=== PATIENT | male | born 1980 | race Caucasian/White ===

== ENCOUNTER 2017-09-28 12:50 | Emergency (ER) | payer BC ==
[2017-09-28] MEDS ORDERED: predniSONE 10 MG TABLET (13:22)
[2017-09-28] MEDS: predniSONE 10 MG TABLET PO (13:24)
[2017-09-28] MEDS: HYDROcodone/APAP 5/325MG 1 TAB TABLET PO (13:25)
[2017-09-28] MEDS: diazePAM 5 MG TABLET PO (13:25)
[2017-09-28] MEDS: NAPROXEN 500 MG TABLET PO (13:25)
== END 2017-09-28 13:29 | disposition home or self-care (01) ==
LOC: ER 12:50
DX: S39.012A Strain of muscle, fascia and tendon of lower back, initial encounter (principal); M54.42 Lumbago with sciatica, left side; I10 Essential (primary) hypertension; X50.0XXA Overexertion from strenuous movement or load, initial encounter; Y93.89 Activity, other specified; Y92.89 Other specified places as the place of occurrence of the external cause; Y99.8 Other external cause status
CPT/HCPCS: 99284; J7512

== ENCOUNTER 2020-02-16 09:01 | Emergency (ER) | payer BC ==
[~2020-02-16] VITALS: Ht 185.4 cm; Wt 120.4 kg
[~2020-02-16 09:01] MED LIST: DIAZ5TAB PO; DICL100G54 TP; METH4TAB2 PO; NAPR500T8 PO
[2020-02-16] MEDS ORDERED: MORPHINE SULFATE 4 MG/ML VIAL. IV ONE (09:15)
[2020-02-16] MEDS ORDERED: KETOROLAC 15 MG/ML VIAL. IVP ONE (09:15)
--- NOTE | 2020-02-16 09:18 | PHYS DOC ---
Past Medical History Past Medical History: No Pertinent History Past Surgical History: Other Additional Past Surgical Histo: keloid removal from ear Smoking Status: Never Smoker Alcohol Use: None Drug Use: None General Adult EDM: Chief Complaint: FLANK PAIN HPI: HPI: History obtained from patient. Patient is a 40-year-old male with no reported past medical history who presents with chief complaint of left flank pain. Patient states the pain began somewhat suddenly 3 days prior to arrival. He states he was at rest when the pain began. States it starts in his left lower quadrant radiates to his left lower back and left upper quadrants. States the pain comes and goes. States it is difficult to find a position of comfort particularly he is sitting upright. He states he did note some darker colored urine 3 days ago but this is since resolved. Denies any obvious blood in the urine. Denies any burning with urination. Denies history of kidney stone. Denies changes to stool caliber or consistency. Denies any blood in his stool. Denies testicle pain. [place] fevers or vomiting. States he has been eating and drinking well. Denies any abdominal surgical history. Denies syncope. Denies alcohol or drug abuse. States the pain is an intermittent sharp and stabbing pain. Did try ibuprofen 6 hours prior to arrival with some relief. Review of Systems: Review of Systems: Constitutional: Denies fever or chills. [] Eyes: Denies change in visual acuity. [] HENT: Denies nasal congestion or sore throat. [] Respiratory: Denies cough or shortness of breath. [] Cardiovascular: Denies chest pain or edema. [] GI: Denies abdominal pain, nausea, vomiting, bloody stools or diarrhea. [] : Denies dysuria. [] Musculoskeletal: Positive for flank pain Integument: Denies rash. [] Neurologic: Denies headache, focal weakness or sensory changes. [] Endocrine: Denies polyuria or polydipsia. [] Lymphatic: Denies swollen glands. [] Psychiatric: Denies depression or anxiety. [] Heart Score: Risk Factors: Risk Factors: DM, Current or recent (<one month) smoker, HTN, HLP, family history of CAD, obesity. Risk Scores: Score 0 - 3: 2.5% MACE over next 6 weeks - Discharge Home Score 4 - 6: 20.3% MACE over next 6 weeks - Admit for Clinical Observation Score 7 - 10: 72.7% MACE over next 6 weeks - Early Invasive Strategies Allergies: Allergies: Allergies Coded Allergies Type Severity Reaction Last Updated Verified No Known Drug Allergies 09/28/17 No Physical Exam: PE: Constitutional: Well developed, well nourished, no acute distress, non-toxic appearance. [] HENT: Normocephalic, atraumatic, bilateral external ears normal, oropharynx moist, no oral exudates, nose normal. [] Eyes: PERRLA, EOMI, conjunctiva normal, no discharge. [] Neck: Normal range of motion, no tenderness, supple, no stridor. [] Cardiovascular:Heart rate regular rhythm, no murmur [] Lungs & Thorax: Bilateral breath sounds clear to auscultation [] Abdomen: soft, no tenderness, no masses, no pulsatile masses. [] : Uncircumcised. No testicular tenderness to palpation. No overlying skin changes. Skin: Warm, dry, no erythema, no rash. [] Back: No tenderness, no CVA tenderness. [] Extremities: No tenderness, no cyanosis, no clubbing, ROM intact, no edema. [] Neurologic: Alert and oriented X 3, normal motor function, normal sensory function, no focal deficits noted. [] Psychologic: Affect normal, judgement normal, mood normal. [] Current Patient Data: Labs: Laboratory Tests Test 02/16/20 09:04 02/16/20 09:40 Urine Collection Type Unknown Urine Color Yellow Urine Clarity Clear Urine pH 6.0 Urine Specific [place] 1.010 Urine Protein Negative mg/dL Urine Glucose (UA) Negative mg/dL Urine Ketones (Stick) Negative mg/dL Urine Blood Small Urine Nitrite Negative Urine Bilirubin Negative Urine Urobilinogen Dipstick 0.2 mg/dL Urine Leukocyte Esterase Negative Urine RBC Rare /HPF Urine WBC Rare /HPF Urine Squamous Epithelial Cells Occ /LPF Urine Bacteria 0 /HPF Sodium Level 135 mmol/L Potassium Level 4.5 mmol/L Chloride Level 101 mmol/L Carbon Dioxide Level 26 mmol/L Anion Gap 8 Blood Urea Nitrogen 20 mg/dL Creatinine 1.3 mg/dL Estimated GFR (Cockcroft-Gault) 61.1 BUN/Creatinine Ratio 15 Glucose Level 104 mg/dL Calcium Level 9.1 mg/dL Total Bilirubin 0.5 mg/dL Aspartate Amino Transf (AST/SGOT) 30 U/L Alanine Aminotransferase (ALT/SGPT) 70 U/L Alkaline Phosphatase 51 U/L Total Protein 7.6 g/dL Albumin 4.0 g/dL Albumin/Globulin Ratio 1.1 Lipase 82 U/L Current Medications Medications (Trade) Dose Ordered Sig/July Route PRN Reason Start Time Stop Time Status Last Admin Dose Admin Morphine Sulfate (Morphine Sulfate) 4 mg 1X ONCE IV 02/16/20 09:15 02/16/20 09:18 DC 02/16/20 09:47 Ketorolac Tromethamine (Toradol 15mg Vial) 15 mg 1X ONCE IVP 02/16/20 09:15 02/16/20 09:18 DC 02/16/20 09:46 Vital Signs: Vital Signs Date Time Temp Pulse Resp B/P (MAP) Pulse Ox O2 Delivery O2 Flow Rate FiO2 02/16/20 09:15 98.7 83 20 175/102 (126) 97 Room Air 98.7 EKG: EKG: [] Radiology/Procedures: Radiology/Procedures: [facility] [address] [place] [address] IMAGING REPORT Signed PATIENT: LV MCCLAIN ACCOUNT: [id number] : 1980 LOCATION: ER AGE: 40 SEX: M EXAM STATUS: PRE ER ORD. PHYSICIAN: LATANYA BARNEY DO REASON: L flank pain PROCEDURE: CT ABDOMEN PELVIS WO CONTRAST EXAMINATION: CT ABDOMEN+PELVIS WO (CT ABDOMEN/PELVIS WITHOUT IV CONTRAST) CLINICAL HISTORY: Left flank pain TECHNIQUE: Non-IV contrast imaging of the abdomen and pelvis was performed using standard technique, scanning from just above the dome of the diaphragm to the symphysis pubis. Unenhanced imaging is limited for the evaluation of some intra-abdominal and pelvic pathology. CT Dose Reduction Employed: One or more of the following individualized dose reduction techniques were utilized for this examination: 1. Automated exposure control 2. Adjustment of the mA and/or kV according to patient size 3. Use of iterative reconstruction technique. COMPARISON: None FINDINGS: Partially visualized coronary atherosclerotic calcification. Partially visualized lung bases unremarkable. Diffuse hypoattenuation of the hepatic parenchyma, compatible steatosis. Gallbladder, pancreas, spleen, and adrenal glands unremarkable. 5 mm partially obstructive calculus in the distal left ureter at the ureterovesical junction with mild hydroureter but no significant left hydronephrosis. 7 mm calcification in the midpole the right kidney may represent a nonobstructive calculus. Mildly filled urinary bladder. No pelvic free fluid or mass. No dilated bowel. [id number] colonic diverticulosis without evidence of diverticulitis on limited noncontrast evaluation. Normal appendix. No abdominal aortic or iliac artery aneurysm. Multiple prominent mesenteric and retroperitoneal lymph nodes, likely reactive. Multilevel thoracolumbar degenerative changes. IMPRESSION: Partially obstructive 5 mm calculus at the left ureterovesical junction with mild hydroureter. Nonacute findings as described. Electronically signed by: Perry Muller DO (02/16/2020 10:19 AM) [facility] DI[facility]ATED and SIGNED BY: PERRY MULLER DO DATE: 02/16/20 [id number] [] Course & Med Decision Making: Course & Med Decision Making Pertinent Labs and Imaging studies reviewed. (See chart for details) [] Patient is a well-appearing 40-year-old male who presents with chief complaint of left flank pain. Vital signs unremarkable. CT imaging does reveal a 5 mm partially obstructing left kidney stone with mild hydronephrosis. Normal kidney function. Urinalysis without evidence of infection. I do feel this kidney stone likely explains the patient's discomfort. I do feel he is xavier ropriate for discharge home with close outpatient follow-up. He will be discharged home with [place], Flomax, Zofran. Patient is agreeable to this and states his symptoms have resolved after treatment in the emergency department. Return precautions were discussed and understood. He was given a neurologist to follow-up with. Stable for discharge home. Kilo Disclaimer: Dragabisai Disclaimer: This electronic medical record was generated, in whole or in part, using a voice recognition dictation system. Departure Departure Impression: Primary Impression: Ureterolithiasis Disposition: 01 DC HOME SELF CARE/HOMELESS Condition: STABLE Referrals: NO PCP (PCP) FLASH ENG MD Patient Instructions: Kidney Stones Additional Instructions: Dr. Crescencio Head MD [address] [place] [address] Call [place] [phone] Scripts Tamsulosin Hcl (FLOMAX) 0.4 Mg Cap.er.24h 1 CAP PO QHS, #7 CAP 11 Refills Prov: LATANYA BARNEY DO 02/16/20 Ondansetron Hcl (ZOFRAN) 4 Mg Tablet 1 TAB PO TID PRN PRN for NAUSEA, #9 TAB Prov: LATANYA BARNEY DO 02/16/20 Hydrocodone/Apap 5-325 (NORCO 5-325 TABLET) 1 Each Tablet 1-2 EACH PO PRN Q6HRS PRN for PAIN, #5 as needed for pain Prov: LATANYA BARNEY DO 02/16/20 LATANYA BARNEY DO Feb 16, 2020 09:18
[2020-02-16 10:11] LABS: CALCIUM 9.1 mg/dL (8.5-10.1); CREATININE 1.3 mg/dL (0.7-1.3); GFR 61.1; POTASSIUM 4.5 mmol/L (3.5-5.1)
[2020-02-16 10:17] LABS: ALBUMIN/GLOBULIN RATIO 1.1 (1.0-1.7); TOTAL BILIRUBIN 0.5 mg/dL (0.2-1.0); TOTAL PROTEIN 7.6 g/dL (6.4-8.2)
--- NOTE | 2020-02-16 10:22 | RAD ---
EXAMINATION: CT ABDOMEN+PELVIS WO (CT ABDOMEN/PELVIS WITHOUT IV CONTRAST) CLINICAL HISTORY: Left flank pain TECHNIQUE: Non-IV contrast imaging of the abdomen and pelvis was performed using standard technique, scanning from just above the dome of the diaphragm to the symphysis pubis. Unenhanced imaging is bocanegra ited for the evaluation of some intra-abdominal and pelvic pathology. CT Dose Reduction Employed: One or more of the following individualized dose reduction techniques wer e utilized for this examination: 1. Automated exposure control 2. Adjustment of the mA and/or kV ac cording to patient size 3. Use of iterative reconstruction technique. COMPARISON: None FINDINGS: Partially visualized coronary atherosclerotic calcification. Partially visualized lung bases unremark able. Diffuse hypoattenuation of the hepatic parenchyma, compatible steatosis. Gallbladder, pancreas, splee n, and adrenal glands unremarkable. 5 mm partially obstructive calculus in the distal left ureter at the ureterovesical junction with mil d hydroureter but no significant left hydronephrosis. 7 mm calcification in the midpole the right kid melania may represent a nonobstructive calculus. Mildly filled urinary bladder. No pelvic free fluid or mass. No dilated bowel. [id number] colonic diverticulosis without evidence of diverticulitis on limit ed noncontrast evaluation. Normal appendix. No abdominal aortic or iliac artery aneurysm. Multiple prominent mesenteric and retroperitoneal lymph nodes, likely reactive. Multilevel thoracolumbar degenerative changes. IMPRESSION: Partially obstructive 5 mm calculus at the left ureterovesical junction with mild hydroureter. Nonacute findings as described. Electronically signed by: Perry García DO (02/16/2020 10:19 AM) [facility]
[2020-02-16] MEDS ORDERED: TAMS0.4C97 PO (10:29)
[2020-02-16] MEDS ORDERED: ONDA4TAB7 PO (10:29)
[2020-02-16] MEDS ORDERED: HYDR-3164 PO (10:29)
[2020-02-16 10:43] LABS: BILIRUBIN,URINE NEGATIVE (NEG); CLARITY,URINE CLEAR; COLOR,URINE YELLOW; NITRITE,URINE NEGATIVE (NEG); PROTEIN,URINE NEGATIVE (NEG-TRACE); UROBILINOGEN,URINE 0.2 mg/dL (0.2 mg/dL)
[2020-02-16 11:09] VITALS: BP 132/77
[2020-02-16 11:13] LABS: BACTERIA,URINE 0 /HPF (0-FEW); RBC,URINE RARE /HPF (0-2); WBC,URINE RARE /HPF (0-4)
== END 2020-02-16 11:38 | disposition home or self-care (01) ==
LOC: ER 09:01
DX: N20.1 Calculus of ureter (principal); R10.32 Left lower quadrant pain; Z98.890 Other specified postprocedural states
CPT/HCPCS: 36415; 74176; 80053; 81001; 83690; 96374; 96375; 99284; J1885; J2270

== ENCOUNTER 2021-02-19 14:27 | Emergency (ER) | payer BC ==
[~2021-02-19] VITALS: Ht 185.4 cm; Wt 125.0 kg
[~2021-02-19 14:27] MED LIST changes: +HYDR-3164 PO; +ONDA4TAB7 PO; +TAMS0.4C97 PO
--- NOTE | 2021-02-19 15:21 | PHYS DOC ---
Past Medical History Past Medical History: No Pertinent History Past Surgical History: Other Additional Past Surgical Histo: keloid removal from ear Smoking Status: Never Smoker Alcohol Use: None Drug Use: None General Adult EDM: Chief Complaint: ABDOMINAL PAIN HPI: HPI: Patient is a 41 year old male here for 6 days of generalized abdominal pain. He denies nausea, vomiting, anorexia. No specific exacerbating relieving factors. The pain does radiate to his low back. He denies any flank pain, thoracic pain, denies chest pain or dyspnea. He denies constipation or diarrhea. He denies urinary symptoms. He reports having a previous history of kidney stones, though he admits that this is nothing like that. He denies any previous abdominal surgeries. No changes in his symptoms today. He was simply concerned because the pain was still persisting. He does report having a healthy appetite, has been eating and drinking without difficulty. He has an appointment on the of this month to establish care with a new primary care physician. Review of Systems: Review of Systems: Constitutional: Denies fever or chills. [] Eyes: Denies change in visual acuity. [] HENT: Denies nasal congestion or sore throat. [] Respiratory: Denies cough or shortness of breath. [] Cardiovascular: Denies chest pain or edema. [] GI: Reports abdominal pain, denies, nausea, vomiting, diarrhea, constipation, dark stools or bloody stools. : Denies urinary symptoms. Musculoskeletal: Reports low back pain. Denies upper or lower extremity pain. Denies joint swelling or pain. Integument: Denies rash. [] Neurologic: Denies headache, focal weakness or sensory changes. [] Psychiatric: Denies depression or anxiety. [] Heart Score: C/O Chest Pain: No Risk Factors: Risk Factors: DM, Current or recent (<one month) smoker, HTN, HLP, family history of CAD, obesity. Risk Scores: Score 0 - 3: 2.5% MACE over next 6 weeks - Discharge Home Score 4 - 6: 20.3% MACE over next 6 weeks - Admit for Clinical Observation Score 7 - 10: 72.7% MACE over next 6 weeks - Early Invasive Strategies Allergies: Allergies: Allergies Coded Allergies Type Severity Reaction Last Updated Verified No Known Drug Allergies 09/28/17 No Physical Exam: PE: Constitutional: Well developed, well nourished, no acute distress, non-toxic appearance. [] HENT: Normocephalic, atraumatic Eyes: Sclera are clear and anicteric Neck: Normal range of motion, no tenderness, supple, no stridor. Trachea is midline. Cardiovascular:Heart rate regular rhythm, +2 radial and +2 posterior tibial pulses bilaterally. Lungs & Thorax: Bilateral breath sounds clear to auscultation [] Abdomen: Abdomen is soft, non-distended, normal bowel sounds, no palpable mass or organomegaly. No objective tenderness to palpation. No palpable pulsatile mass. No flank or abdominal ecchymoses. Skin: Warm, dry, no erythema, no rash. [] Back: No tenderness, no CVA tenderness. Full range of motion. Extremities: No tenderness, no cyanosis, no clubbing, ROM intact, no edema. No calf tenderness. Neurologic: Alert and oriented X 3, normal motor function, normal sensory function, no focal deficits noted. [] Psychologic: Affect normal, judgement normal, mood normal. [] EKG: EKG: EKG is interpreted at 1601 Rhythm is sinus Rate is 79 bpm [place] is normal. No STEMI Radiology/Procedures: Radiology/Procedures: IMAGING REPORT Signed PATIENT: LV MCCLAIN ACCOUNT: [id number] : 1980 LOCATION: ER AGE: 41 SEX: M EXAM STATUS: REG ER ORD. PHYSICIAN: HEMANT QUICK DO REASON: abdominal pain;OMNI 300, 75ML PROCEDURE: CT ABD PELV W/ IV CONTRST ONLY CT abdomen pelvis with contrast dated 02/19/2021. COMPARISON: None. Clinical data indication: Abdominal pain. TECHNIQUE: Contiguous axial imaging the M pelvis performed after the administration of 75 cc Omnipaque 300. One or more of the following individualized dose reduction techniques were utilized for this examination: 1. Automated exposure control 2. Adjustment of the mA and/or kV according to patient size 3. Use of iterative reconstruction technique. FINDINGS: Limited images of the lung bases are clear. Heart size is upper limits of normal. No pleural or pericardial effusion. Coronary artery calcifications. Liver is of diffuse low density compatible with fatty infiltration. No apparent mass. Biliary tree normal in caliber. Gallbladder unremarkable. Spleen is normal in size. Pancreas, adrenal glands and kidneys are unremarkable. No hydronephrosis. Unopacified GI tract normal in caliber and contour. No focal bowel wall thickening. No inflammatory stranding in the mesentery. The appendix is normal in caliber. No ascites or lymphadenopathy. Abdominal aorta normal in caliber. Images the pelvis show nondistended urinary bladder. Prostate gland within normal limits in size. No free fluid or pelvic lymphadenopathy. Bone windows show no acute finding. Multilevel spondylosis. Moderate to severe foraminal narrowing at the L5-S1 level. IMPRESSION: 1. No acute abnormality of abdomen or pelvis. Normal appendix. 2. Mild fatty infiltration of the liver. Electronically signed by: Davie Wakefield MD (02/19/2021 4:50 PM) [facility] [place] DICTATED and SIGNED BY: DAVIE WAKEFIELD MD DATE: 02/19/21 [id number] Course & Med Decision Making: Course & Med Decision Making Pertinent Labs and Imaging studies reviewed. (See chart for details) I discussed the findings, differential diagnosis and plan of care with the patient. He declines pain medication. Abdominal exam is benign, nonsurgical. Work-up here is unremarkable for any acute life-threatening process. He is comfortable with plan for discharge home. I told him to keep his schedule appointment with his new primary care doctor on the . He may need to see outpatient GI services if symptoms persist. Strict return precautions are given. Kilo Disclaimer: Kilo Disclaimer: This electronic medical record was generated, in whole or in part, using a voice recognition dictation system. Departure Departure Impression: Primary Impression: Generalized abdominal pain Disposition: HOME / SELF CARE / HOMELESS Condition: STABLE Referrals: NO PCP (PCP) Patient Instructions: Abdominal Pain (Nonspecific) Additional Instructions: Return to the ER for more severe or localized pain, vomiting, temperature 100.4 or higher, shortness of breath, chest pain, bloody stools, vomiting blood or any other concerns. Keep your appointment on Monday the with your new primary care doctor. You may need to see outpatient GI services if symptoms persist. HEMANT QUICK DO Feb 19, 2021 15:21
[2021-02-19 15:55] LABS: BILIRUBIN,URINE NEGATIVE (NEG); CLARITY,URINE CLEAR; COLOR,URINE YELLOW; NITRITE,URINE NEGATIVE (NEG); PH,URINE 5.5 (<5.0-8.0); PROTEIN,URINE NEGATIVE (NEG-TRACE); UROBILINOGEN,URINE 0.2 mg/dL (0.2 mg/dL)
[2021-02-19 16:02] LABS: BACTERIA,URINE 0 /HPF (0-FEW); RBC,URINE 0 /HPF (0-2); WBC,URINE 0 /HPF (0-4)
[2021-02-19 16:10] LABS: BASO # 0.1 x10^3/uL (0.0-0.2); BASO % 1 % (0-3); EOS # 0.2 x10^3/uL (0.0-0.7); EOS % 2 % (0-3); HEMATOCRIT 44.7 % (39.0-53.0); HEMOGLOBIN 15.4 g/dL (13.0-17.5); LYMPH # 2.6 x10^3/uL (1.0-4.8); LYMPH % 29 % (24-48); MEAN CORPUSCULAR HEMOGLOBIN 28 pg (25-35); MEAN CORPUSCULAR HGB CONC 35 g/dL (31-37); MEAN CORPUSCULAR VOLUME 82 fL (79-100); MONO # 0.6 x10^3/uL (0.0-1.1); MONO % 6 % (0-9); NEUT # 5.5 x10^3/uL (1.8-7.7); NEUT % 61 % (31-73); PLATELET COUNT 197 x10^3/uL (140-400); RED BLOOD COUNT 5.49 x10^6/uL (4.30-5.70); RED CELL DISTRIBUTION WIDTH 14.3 % (11.5-14.5)
[2021-02-19 16:19] LABS: CALCIUM 9.5 mg/dL (8.5-10.1); CREATININE 0.9 mg/dL (0.7-1.3); POTASSIUM 3.7 mmol/L (3.5-5.1)
[2021-02-19 16:25] LABS: ALBUMIN 4.1 g/dL (3.4-5.0); ALBUMIN/GLOBULIN RATIO 1.2 (1.0-1.7); TOTAL BILIRUBIN 0.6 mg/dL (0.2-1.0); TOTAL PROTEIN 7.6 g/dL (6.4-8.2)
--- NOTE | 2021-02-19 16:26 | EKG ---
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
[2021-02-19] MEDS ORDERED: IOHEXOL 300 MG/ML 100ML VIAL. IV ONE (16:30)
[2021-02-19] MEDS ORDERED: CONTRAST GIVEN. MC PRN (16:45)
--- NOTE | 2021-02-19 16:52 | RAD ---
CT abdomen pelvis with contrast dated 02/19/2021. COMPARISON: None. Clinical data indication: Abdominal pain. TECHNIQUE: Contiguous axial imaging the M pelvis performed after the administration of 75 cc Omnipaque 300. One or more of the following individualized dose reduction techniques were utilized for this examinat ion: 1. Automated exposure control 2. Adjustment of the mA and/or kV according to patient size 3. Use of iterative reconstruction technique. FINDINGS: Limited images of the lung bases are clear. Heart size is upper limits of normal. No pleural or peric ardial effusion. Coronary artery calcifications. Liver is of diffuse low density compatible with fatty infiltration. No apparent mass. Biliary tree no rmal in caliber. Gallbladder unremarkable. Spleen is normal in size. Pancreas, adrenal glands and kidneys are unremarkable. No hydronephrosis. Unopacified GI tract normal in caliber and contour. No focal bowel wall thickening. No inflammatory s tranding in the mesentery. The appendix is normal in caliber. No ascites or lymphadenopathy. Abdomina l aorta normal in caliber. Images the pelvis show nondistended urinary bladder. Prostate gland within normal limits in size. No free fluid or pelvic lymphadenopathy. Bone windows show no acute finding. Multilevel spondylosis. Moderate to severe foraminal narrowing at the L5-S1 level. IMPRESSION: 1. No acute abnormality of abdomen or pelvis. Normal appendix. 2. Mild fatty infiltration of the liver. Electronically signed by: Davie Wakefield MD (02/19/2021 4:50 PM) [facility]
[2021-02-19 17:01] VITALS: BP 155/90
== END 2021-02-19 17:50 | disposition home or self-care (01) ==
LOC: ER 14:27
DX: R10.84 Generalized abdominal pain (principal)
CPT/HCPCS: 36415; 74177; 80053; 81001; 83690; 85025; 93005; 99285; Q9967

== ENCOUNTER 2021-04-05 11:31 | Emergency (ER) | payer BC, OTHER ==
[~2021-04-05] VITALS: Ht 185.4 cm; Wt 122.7 kg
[2021-04-05 14:04] LABS: BILIRUBIN,URINE NEGATIVE (NEG); CLARITY,URINE CLEAR; COLOR,URINE YELLOW; NITRITE,URINE NEGATIVE (NEG); PROTEIN,URINE NEGATIVE (NEG-TRACE); UROBILINOGEN,URINE 0.2 mg/dL (0.2 mg/dL)
[2021-04-05 14:34] LABS: BACTERIA,URINE 0 /HPF (0-FEW); RBC,URINE RARE /HPF (0-2); WBC,URINE RARE /HPF (0-4)
--- NOTE | 2021-04-05 15:38 | PHYS DOC ---
Past Medical History Past Medical History: No Pertinent History Additional Past Medical Histor: kidney stones Past Surgical History: No Surgical History, Other Additional Past Surgical Histo: keloid removal from ear Smoking Status: Never Smoker Alcohol Use: None Drug Use: None General Adult EDM: Chief Complaint: ABDOMINAL PAIN HPI: HPI: Patient is a 41 year old male who presents with periumbilical abdominal pain. He has had the symptoms off and on for over a month. He was seen here in February for similar symptoms. CT imaging was unremarkable at that time. He has since establish care with a primary care physician, who started him on anta juany medications and also on Flomax. He reports that the pain frequently is worse after working for long periods of time. The pain does not radiate. He denies nausea, vomiting, diarrhea, constipation. He denies urinary symptoms. He denies back or flank pain. He denies anorexia. He denies weight loss. He has a scheduled appointment to see GI on the 20 of April. He was seen by his doctor today in the office just prior to arrival, and he was sent here to the ER to have a CT scan to rule out an incarcerated hernia. He is not noted to have a previous hernia, no previous abdominal surgeries. Review of Systems: Review of Systems: Constitutional: Denies fever or chills. [] HENT: Denies nasal congestion or sore throat. [] Respiratory: Denies cough or shortness of breath. [] Cardiovascular: Denies chest pain or edema. [] GI: Periumbilical abdominal pain. Denies nausea, vomiting, diarrhea, constipation. Denies melena or hematochezia peer : Denies urinary symptoms. Musculoskeletal: Denies back pain or joint pain. [] Integument: Denies rash. [] Neurologic: Denies headache, focal weakness or sensory changes. [] Psychiatric: Denies depression or anxiety. [] Heart Score: C/O Chest Pain: No Risk Factors: Risk Factors: DM, Current or recent (<one month) smoker, HTN, HLP, family history of CAD, obesity. Risk Scores: Score 0 - 3: 2.5% MACE over next 6 weeks - Discharge Home Score 4 - 6: 20.3% MACE over next 6 weeks - Admit for Clinical Observation Score 7 - 10: 72.7% MACE over next 6 weeks - Early Invasive Strategies Allergies: Allergies: Allergies Coded Allergies Type Severity Reaction Last Updated Verified No Known Drug Allergies 09/28/17 No Physical Exam: PE: Constitutional: Well developed, well nourished, no acute distress, non-toxic appearance. [] HENT: Normocephalic, atraumatic Eyes: conjunctiva normal, no discharge. No scleral icterus. Neck: Normal range of motion, no tenderness, supple, no stridor. Trachea midline Cardiovascular:Heart rate regular rhythm, 2 radial and +2 posterior tibial pulses bilateral Lungs & Thorax: Bilateral breath sounds clear to auscultation [] Abdomen: Abdomen is obese, soft, nondistended, normal bowel sounds, no palpable pulsatile mass, no audible bruit, no palpable organomegaly or masses noted. Mild periumbilical abdominal tenderness, no guarding, no rebound tenderness, no palpable defect or hernia appreciated at all. No CVA tenderness. No periumbilical, abdominal or flank ecchymoses are noted Skin: Warm, dry, no erythema, no rash. No ecchymoses. No jaundice. Back: No tenderness, no CVA tenderness. [] Extremities: No tenderness, no cyanosis, no clubbing, ROM intact, no edema. [] Neurologic: Alert and oriented X 3, normal motor function, normal sensory function, no focal deficits noted. [] Psychologic: Affect normal, judgement normal, mood normal. [] Current Patient Data: Labs: Laboratory Tests Test 04/05/21 13:00 Urine Color Yellow Urine Clarity Clear Urine pH 6.0 (<5.0-8.0) Urine Specific [place] 1.010 (1.000-1.030) Urine Protein Negative mg/dL (NEG-TRACE) Urine Glucose (UA) Negative mg/dL (NEG) Urine Ketones (Stick) Negative mg/dL (NEG) Urine Blood Trace (NEG) Urine Nitrite Negative (NEG) Urine Bilirubin Negative (NEG) Urine Urobilinogen Dipstick 0.2 mg/dL (0.2 mg/dL) Urine Leukocyte Esterase Negative (NEG) Urine RBC Rare /HPF (0-2) Urine WBC Rare /HPF (0-4) Urine Squamous Epithelial Cells Few /LPF Urine Bacteria 0 /HPF (0-FEW) Vital Signs: Vital Signs Date Time Temp Pulse Resp B/P (MAP) Pulse Ox O2 Delivery O2 Flow Rate FiO2 04/05/21 13:43 98.1 94 18 151/97 (115) 97 Room Air 98.1 EKG: EKG: [] Radiology/Procedures: Radiology/Procedures: IMAGING REPORT Signed PATIENT: LV MCCLAIN ACCOUNT: [id number] : 1980 LOCATION: ER AGE: 41 SEX: M EXAM STATUS: REG ER ORD. PHYSICIAN: HEMANT QUICK DO REASON: periumbilical abdominal pain PROCEDURE: CT ABD PELV W/ IV CONTRST ONLY Exam: CT abdomen/pelvis with intravenous contrast Indication: Periumbilical abdominal pain Comparison: CT abdomen and pelvis 02/19/2021 Technique: Helical CT imaging performed of the abdomen and pelvis after the intravenous administration of 75 mg Omnipaque 300 contrast. Sagittal and coronal reformats were obtained. One or more of the following individualized dose reduction techniques were u tilized for this examination: 1. Automated exposure control 2. Adjustment of the mA and/or kV according to patient size 3. Use of iterative reconstruction technique. Findings: Lower chest: Lung bases are clear. Heart is normal in size. Liver: The liver measures 19.5 cm and diffusely decreased in attenuation. No focal liver lesion. Gallbladder/Biliary Tree: Normal. Pancreas: Normal. Spleen: Normal. Adrenal Glands: Normal. Kidneys/Ureters/Bladder:. Kidneys are normal in size and enhancement. No hyd ronephrosis. A linear calcification in the right kidney is unchanged. No hydronephrosis. Ureters and bladder are normal. Reproductive Organs: Prostate gland is normal. Stomach, small bowel, and colon: The stomach, small bowel, colon, and appendix are normal. Vasculature: No aortic aneurysm. No vascular calcifications. Lymph Nodes: No lymphadenopathy. Peritoneum and retroperitoneum: No free fluid or free air. Bones: No acute osseous abnormality. Unchanged mild degenerative disc disease, greatest at L5-S1 where there is right greater than left foraminal narrowing. Miscellaneous: No abdominal wall or inguinal hernia. IMPRESSION: 1. No acute abnormality in the abdomen and pelvis. 2. Unchanged nonobstructing calculus in the right kidney. 3. Unchanged hepatic steatosis. Electronically signed by: Sahra Lewis MD (04/05/2021 5:15 PM) [id number] DICTATED and SIGNED BY: SAHRA LEWIS MD DATE: 04/05/21 [id number] 0 Course & Med Decision Making: Course & Med Decision Making Pertinent Labs and Imaging studies reviewed. (See chart for details) Patient is given IV fluids and IV Toradol. He has a benign, nonsurgical abdominal exam. No objective evidence of hernia defect, no objective evidence of any acute abdominal pathology on CT. Laboratory exams are unremarkable. I have discussed all of the findings, differential diagnosis and plan of care with the patient. I strongly encouraged him to keep his appointment on April 20 with GI. He should also follow-up with his primary care physician. He may continue taking antacid medications. He will be prescribed a small number of pain medicine to use as needed for severe pain only. Strict return precautions are given. He verbalized understanding. Dragon Disclaimer: Dragon Disclaimer: This electronic medical record was generated, in whole or in part, using a voice recognition dictation system. Departure Departure Impression: Primary Impression: Periumbilical abdominal pain Disposition: HOME / SELF CARE / HOMELESS Condition: STABLE Referrals: MAYCOL PABLO MD (PCP) Patient Instructions: Abdominal Pain (Nonspecific) Additional Instructions: Your CAT scan and labs today are normal. You do not have any evidence of a hernia or other acute life-threatening or surgical problems. Please keep your scheduled appointment with GI in April. Return to the ER for acute changes in pain, uncontrolled vomiting, fever 100.4 or higher, dehydration, if you are acutely injured or sustained any trauma or for any other concerns. You may keep taking your previously prescribed medications as per your primary care doctor. Follow-up with your primary care doctor for further evaluation of this condition as well. Scripts Tramadol Hcl (ULTRAM) 50 Mg Tablet 1 TAB PO PRN Q6HRS PRN for pain MDD 4 Tablet(s), #15 TAB 0 Refills Prov: HEMANT QUICK DO 04/05/21 HEMANT QUICK DO Apr 05, 2021 15:38
[2021-04-05] MEDS: IV NORMAL SALINE 1000ML BAG 1,000 ML IV ONE (16:24)
[2021-04-05] MEDS: KETOROLAC 15 MG/ML VIAL. IVP ONE (16:24)
[2021-04-05 16:27] LABS: BASO % 1 % (0-3); EOS # 0.2 x10^3/uL (0.0-0.7); EOS % 2 % (0-3); HEMATOCRIT 46.4 % (39.0-53.0); HEMOGLOBIN 16.2 g/dL (13.0-17.5); LYMPH # 2.1 x10^3/uL (1.0-4.8); LYMPH % 21 % (24-48); MEAN CORPUSCULAR HEMOGLOBIN 28 pg (25-35); MEAN CORPUSCULAR HGB CONC 35 g/dL (31-37); MEAN CORPUSCULAR VOLUME 80 fL (79-100); MONO # 0.5 x10^3/uL (0.0-1.1); MONO % 5 % (0-9); NEUT # 6.9 x10^3/uL (1.8-7.7); NEUT % 71 % (31-73); PLATELET COUNT 237 x10^3/uL (140-400); RED BLOOD COUNT 5.78 x10^6/uL (4.30-5.70); WHITE BLOOD COUNT 9.7 x10^3/uL (4.0-11.0)
[2021-04-05] MEDS ORDERED: CONTRAST GIVEN. MC PRN (16:30)
[2021-04-05 16:39] LABS: CALCIUM 9.1 mg/dL (8.5-10.1); CREATININE 1.1 mg/dL (0.7-1.3); GFR 73.8; POTASSIUM 3.7 mmol/L (3.5-5.1)
[2021-04-05 16:45] LABS: ALBUMIN 4.1 g/dL (3.4-5.0); ALBUMIN/GLOBULIN RATIO 0.9 (1.0-1.7); TOTAL BILIRUBIN 0.6 mg/dL (0.2-1.0); TOTAL PROTEIN 8.6 g/dL (6.4-8.2)
[2021-04-05] MEDS: IOHEXOL 300 MG/ML 100ML VIAL. IV ONE (16:56)
--- NOTE | 2021-04-05 17:17 | RAD ---
Exam: CT abdomen/pelvis with intravenous contrast Indication: Periumbilical abdominal pain Comparison: CT abdomen and pelvis 02/19/2021 Technique: Helical CT imaging performed of the abdomen and pelvis after the intravenous administratio n of 75 mg Omnipaque 300 contrast. Sagittal and coronal reformats were obtained. One or more of the following individualized dose reduction techniques were utilized for this examinat ion: 1. Automated exposure control 2. Adjustment of the mA and/or kV according to patient size 3. Use of iterative reconstruction technique. Findings: Lower chest: Lung bases are clear. Heart is normal in size. Liver: The liver measures 19.5 cm and diffusely decreased in attenuation. No focal liver lesion. Gallbladder/Biliary Tree: Normal. Pancreas: Normal. Spleen: Normal. Adrenal Glands: Normal. Kidneys/Ureters/Bladder:. Kidneys are normal in size and enhancement. No hydronephrosis. A linear sabina cification in the right kidney is unchanged. No hydronephrosis. Ureters and bladder are normal. Reproductive Organs: Prostate gland is normal. Stomach, small bowel, and colon: The stomach, small bowel, colon, and appendix are normal. Vasculature: No aortic aneurysm. No vascular calcifications. Lymph Nodes: No lymphadenopathy. Peritoneum and retroperitoneum: No free fluid or free air. Bones: No acute osseous abnormality. Unchanged mild degenerative disc disease, greatest at L5-S1 wher e there is right greater than left foraminal narrowing. Miscellaneous: No abdominal wall or inguinal hernia. IMPRESSION: 1. No acute abnormality in the abdomen and pelvis. 2. Unchanged nonobstructing calculus in the right kidney. 3. Unchanged hepatic steatosis. Electronically signed by: Sahra Lewis MD (04/05/2021 5:15 PM) [id number]
[2021-04-05] MEDS ORDERED: TRAM-48 PO (17:57)
[2021-04-05 18:13] VITALS: BP 162/109
== END 2021-04-05 18:13 | disposition home or self-care (01) ==
LOC: ER 11:31
DX: R10.33 Periumbilical pain (principal); M51.37 Other intervertebral disc degeneration, lumbosacral region
CPT/HCPCS: 36415; 74177; 80053; 81001; 83605; 83690; 85025; 96361; 96374; 99285; J1885; J7030; Q9967

== ENCOUNTER → 2021-05-10 | Outpatient (CLI) | payer OTHER ==
[~2021-05-10] MED LIST changes: +BARIUM SULFATE 60% 355 ML SUSP PO ONE; +TRAM-48 PO
--- NOTE | 2021-05-10 10:42 | KCIC ---
EXAMINATION: SMALL BOWEL FOLLOW THROUGH 05/10/2021 8:33 AM HISTORY: Upper abdominal pain, change in bowel habits. Inflammation of lower stomach and upper inte sami. COMPARISON: None TECHNIQUE: A oxygraph operator image was obtained. The patient drank barium and overhead images were obtained at 30 minute intervals. Spot fluoroscopic images of the bowel were also obtained with compression. FINDINGS: The small bowel is normal in appearance. No evidence of obstruction or stricture. Small bowel transit time is 30 minutes. The stomach was grossly normal in morphology. Total fluoroscopic time:0 minutes 58 seconds. 5 images saved. IMPRESSION: Normal small bowel series. Electronically signed by: Sahra Lewis MD (05/10/2021 10:39 AM) [id number]
== END ==
LOC: KCIC 08:35
PROVIDERS: ATTEND Internal Medicine Gastroenterology
DX: R19.4 Change in bowel habit (principal); R10.10 Upper abdominal pain, unspecified
CPT/HCPCS: 74250